=== PATIENT | female | born 2000 | race Caucasian/White ===

== ENCOUNTER 2023-04-23 14:52 | Emergency (ER) | payer MEDICAID ==
[~2023-04-23] VITALS: Ht 160 cm; Wt 62.2 kg
[~2023-04-23 14:52] MED LIST: SIME125T7 PO
--- NOTE | 2023-04-23 16:02 | NUR ---
pt presents to the er with chest tightness and a sharp pain in center of chest. pt states " my left leg is also swollen"
[2023-04-23 16:05] VITALS: BP 120/66
== END 2023-04-23 17:14 | disposition home or self-care (01) ==
LOC: ER 14:53
DX: R07.89 Other chest pain (principal); F41.9 Anxiety disorder, unspecified; Z79.899 Other long term (current) drug therapy
CPT/HCPCS: 93005; 99283